=== PATIENT | female | born 1965 | race Caucasian/White ===

== ENCOUNTER 2025-02-11 10:29 | Outpatient (OUT) | payer OTHER, SELFPAY ==
--- OUTSIDE RECORDS SUMMARY | 2024-03-31 09:06 | XMS_ITS ---
Author Organization The [facility] in [place] Address [address] [place] [address] Care Team Providers Care Chief Privacy Officer Name Role Phone Omari Fonseca Primary Care Provider Medications Medication SIG (Take, Route, Frequency, Duration) Notes Start Date End Date Status Coreg 12.5 MG 1 tablet with food O rally Twice a day for 90 days 03/11/2023 Active Encounters Encounter Location Date Provider Diagnosis [address] [place] [address] 03/31/2024 Omari Fonseca Plan Of Treatment Medication Medication Name Sig Start Date Stop Date Notes Coreg 12.5 MG 1 tablet with food O rally Twice a day for 90 days 03/11/2023 Progress Notes * Mary WIGGINS EDOB:[birth year] (58 yo F)Acc No.[id number]:03/31/2024 Patient: Mary AGUILA :1965 A ge:58 Y S ex:Female Address:[place] [address] * Refills Refill Coreg Tablet, 12.5 MG, Orally, 180 Tablet, 1 tablet with food, Twice a day, 90 days, Refills=3 * true * Date: Generated for Printi ng/Faxing/eTransmitting on: 0 02/11/2025 10:34 AM EDT
--- OUTSIDE RECORDS SUMMARY | 2024-04-26 05:55 | XMS_ITS ---
Author Organization The [facility] in [place] Address [address] [place] [address] Care Team Providers Care Sld Teacher Name Role Phone Omari Fonseca Primary Care Provider Medications Medication SIG (Take, Route, Frequency, Duration) Notes Start Date End Date Status Venlafaxine HCl ER 75 MG 1 capsule Orall y Once a day for 90 days 04/11/2023 Active Encounters Encounter Location Date Provider Diagnosis [address] [address] 04/26/2024 Omari Fonseca Plan Of Treatment Medication Medication Name Sig Start Date Stop Date Notes Venlafaxine HCl ER 75 MG 1 capsule Orall y Once a day for 90 days 04/11/2023 Progress Notes * Mary WIGGINS EDOB:[birth year] (58 yo F)Acc No.[id number]:04/26/2024 Patient: Mary AGUILA :1965 A ge:58 Y S ex:Female Address:[place] [address] * Refills Refill Venlafaxine HCl ER Capsule Extended Release 24 Hour, 75 MG, Orally, 90, 1 capsule, Once a day, 90 days, Refills=3 * true * Date: Generated for Kashifi ng/Faxing/eTransmitting on: 0 02/11/2025 10:35 AM EDT
--- OUTSIDE RECORDS SUMMARY | 2025-02-09 05:45 | XMS_ITS ---
Author Organization The [facility] in [place] Address [address] [place] [address] Care Team Providers Care Cogeneration Operator Name Role Phone Omari Fonseca Primary Care Provider Allergies Allergen (clinical drug ingredient) Drug/Non Drug Allergy documented on EMR Reaction Allergy Type Onset Date Status Medicinal quinolone and acting as antibacterial agent (FN) Fluoroquinolones (uncoded) RASH/SOB Allergy Active moxifloxacin Avelox rash/throat Drug Allergy Ac tive Neosporin rash Drug Allergy Active REASON FOR VISIT SELF PAY tenderness of the right breast- more near the nipple area- 5 days ongoing, Patient needs 90 day supply of Irbesartan to DM [facility] Medications Medication SIG (Take, Route, Frequency, Duration) Notes Start Date End Date Status Irbesartan 300 MG 1 tablet Orally Once a day for 30 days 03/11/2023 Active Coreg 12.5 MG 1 tablet with food O rally Twice a day for 90 days 03/11/2023 Active Venlafaxine HCl ER 75 MG 1 capsule Orall y Once a day for 90 days 04/11/2023 Active Social History Tobacco Use: Social History Observation Description Date Details (start date - stop date) Never Smoker NA - NA Tobacco Use/Smoking Question Answer Notes Patient is a nonsmoker Problems Problem Type SNOMED Code ICD Code Onset Dates Problem Status W/U Status Risk Notes Problem Chest wall pain (820356896) Chest wall pain (R07.89) Active confirmed Problem Hypertension (96045188) Hypertension (I10) Active confirmed Problem Depressed (39014543) Depressed (F32.9) Active confirmed Problem Well adult (083494751) Well adult (Z00.00) Active confirmed Vital Signs Blood pressure systolic 152 mm Hg 02/10/20 25 Blood pressure diastolic 82 mm Hg 025 Height 62 in 02/09/2025 Weight 204.6 lbs 02/09/2025 BMI 37.42 kg/m2 02/09/2025 Encounters Encounter Location Date Provider Diagnosis [facility] [address] [place] [address] 02/09/2025 Omari Hoy Chest wall pain R07. 89 ; Hypertension I10 ; Depressed F32.9 and Well adult Z00.00 Assessments Encounter Date Diagnosis (ICD Code) Assessment Notes Treatment Notes Treatment Clinical Notes Section Notes 02/09/2025 Chest wall pain (ICD-10 - R07.89) 02/09/2025 Hypertension (ICD-10 - I10) 02/09/2025 Depressed (ICD-10 - F32.9) 02/09/2025 Well adult (ICD-10 - Z00.00) Plan Of Treatment Pending Test Test Name Order Date HEMOGLOBIN A1C (GLYCO) 02/09/2025 IRON, TOTAL 02/09/2025 LIPID PANEL (CHOL/TRIG/HDL/LDL) 02/10/20 25 VITAMIN D, 25 LEVEL (TOTAL) 02/09/2025 Insulin Level 02/09/2025 STOOL OCCULT BLOOD 02/09/2025 THYROID PANEL (T4/TSH/FREE T3) 5 MM screening mammo BI 02/09/2025 CMP (COMP MET LUIS) w/eGFR CKD-EPI 2024 CBC WITH DIFF 02/09/2025 Progress Notes * Mary WIGGINS EDOB:[birth year] (59 yo F)Acc No.[id number]:02/09/2025 UNLOCKED PROGRESS NOTE Progress Note Patient: Mary AGUILA Provider: Kaz Fonseca ([facility])MD :1965 A ge:59 Y S ex:Female Date:02/09/2025 Address:[address] [place] [address] , [address] [place], [id number] Check In:09:20 AM ESTCheck O ut:10:33 AM EST Subjective: * Chief Complaints: * 1 . SELF PAY tenderness of the right breast- more near the nipple area- 5 days ongoing. 2. Patient needs 90 day supply of Irbesartan to DM [facility]. * HPI: D epression Screening: PHQ-2 (2015 Edition) L ittle interest or pleasure in doing things??Not at all F eeling down, depressed, or hopeless? N ot at all T otal Score 0 Riht breea tenerndss just below the nipple just woke with it - thought slep wrong Not had well ness labs. * ROS: E ENT: hearing changes d enies. v isual changes d enies.?non-healing mouth sores d enies. s wollen glands or neck lumps d enies. h oarseness d enies. s ore throat d enies. d ifficulty swallowing d enies. n ose bleeds d enies. n nelia congestion d enies. e ar ache d enies. e ar discharge?denies. r inging in ears d enies. l ight sensitivity d enies. e ye pain d enies. b lurring d enies. e ye irritation d enies. d ouble vision d enies.?vision loss d enies. G eneral/Constitutional: Sweats: D enies. F atigue d enies. S leep problems d enies. A norexia d enies. M alaise d enies. W eight loss d enies.?Fatigue or Weakness d enies. F ever or Chills d enies. C ardiovascular: Shortness of Breath w/lying flat d enies. L ightheadedness/dizziness d enies. C hest tightness/ heavy pressure d enies. S welling of legs, ankles, or feet d enies. W aking up with shortness of breath d enies. C hest pain denies. P alpitations d enies. W eight gain d enies. R espiratory: Chronic or frequent cough d enies. C oughing up blood?denies. D ifficulty breathing d enies. P roductive cough d enies. S noring?denies. S hortness of breath that awakens from sleep (PND) d enies. C hest pain d enies. S putum production d enies. W heezing d enies. M usculoskeletal: Joint pain d enies. J oint Fluid d enies. B ack pain d enies. K nee pain d enies. N niels pain d enies. J oint Stiffness d enies. M uscle cramps d enies. W eakness of muscles d enies. A rthritis d enies. M uscle aches d enies. P ain in shoulder(s) d enies. S wollen joints d enies. * Medical History: A lcoholic fatty liver, Anemia, COVID-19, Eczema, Essential Hypertension, Gastroesophageal reflux disease, Generalized anxiety disorder, Hyperlipidemia, Hypokalemia. * Surgical History: C HOLECYSTECTOMY . * Hospitalization/Major Diagno stic Procedure: D enies Past Hospitalization. * Family History: F ather: alive, acute myocardial infarction, diagnosed with Diabetes mellitus without mention of complication, type II or unspecified type, not stated as uncontrolled, Unspecified essential hypertension. M other: , acute myocardial infarction, dementia, diagnosed with Diabetes mellitus without mention of complication, type II or unspecified type, not stated as uncontrolled, Unspecified essential hypertension. B rother(s): alive, diagnosed with Diabetes mellitus without mention of complication, type II or unspecified type, not stated as uncontrolled, Unspecified essential hypertension. S on(s): alive. D aughter(s): alive. 2 brother(s) . 2 son(s) , 1 daughter(s) - healthy. . * Social History: T obacco Use: T obacco Use/Smoking P atient is a n onsmoker * Medications: T aking Coreg(Carvedilol) 12.5 MG Tablet 1 tablet with food Orally Twice a day , Taking Irbesartan 300 MG Tablet 1 tablet Orally Once a day , Taking Venlafaxine HCl ER 75 MG Capsule Extended Release 24 Hour 1 capsule Orally Once a day , Discontinued Cefdinir 300 MG Capsule 2 tabs Orally once a day , Discontinued predniSONE 20 MG Tablet 3 tablets Orally Once a day , Medication List reviewed and reconciled with the patient * Allergies: F luoroquinolones: RASH/SOB - Allergy, Neosporin: rash - Allergy, Avelox: rash/throat - Allergy. Objective: * Vitals: W t:204.6lbs, Ht: 62 in, BP:152/82mm Hg, BMI:37.42Index, Ht-cm: 157.48 cm, Wt-k.81 kg. * Examination: P hysical Exam: GENERAL: w ell developed, well nourished, in no acute distress. HEAD: n ormocephalic/atraumatic. EYES: p upils equal, round and reactive to light, conjunctivae and sclerae normal. EARS: n o deformity or lesion of external ear, canals and TM appear normal bilaterally, TM's intact, not inflamed with normal light reflex, hearing grossly normal to conversational speech. NOSE: n o deformity, discharge, inflammation, or lesions.? MOUTH: m ucous membranes moist, normal oropharynx and posterior pharynx without lesions or exudates, tongue normal, dentition normal. NECK: n niels supple, no masses or palpable cervical nodes, trachea midline, thyroid without nodules, masses, tenderness, or enlargement. CHEST: n o chest wall deformity, no chest wall tenderness.? LUNGS: n ormal respiratory effort and clear to auscultation, no wheezes, rales, or rhonchi, good air exchange. CARDIO: r egular rate and rhythm, normal S1 and S2, nor murmur, rub, or gallop. PULSES: n ormal capillary refill. ABDOMEN: s oft, non-distended, non-tender, no masses. MUSCULOSKELETAL: n o deformity or scoliosis noted, normal range of motion, joints normal, no erythema, edema, effusion, or ecchymosis. EXTREMITY: n o clubbing, cyanosis, edema, or deformity with normal ROM in both upper and lower bilateral extremities. NEUROLOGIC: g rossly normal. SKIN: n o rashes, ulcerations, or suspicious lesions. LYMPH NODES: n o cervical adenopathy, nodes normal. MENTAL STATUS: a lert and oriented x3, normal mood and affect. Assessment: * Assessment: 1. C hest wall pain - R07.89 (Primary) 2 . H ypertension - I10 ?3. D epressed - F32.9 4 . W ell adult - Z00.00 Plan: * Treatment: * * Electronic signature of Omari Fonseca MD, [id number] on 02/11/2025 at 10:35 AM EDT Sign off status: Pending Visit Status: C HK (Check Out) * Provider: Kaz Fonseca ([facility])MD Date: 0 02/09/2025 Generated for Kashifi mary ellen/Luisag/eTransmitting on: 0 02/11/2025 10:35 AM EDT History and Physical Notes * HPI (History of Present Illness) Category Sub-Category Detail Notes Category Not es Depression Screening PHQ-2 (2015 Edition) Little interest or pleasure in doing things?: Not at all Riht breea tenerndss just below the nipple just woke with it - thought slep wrong Not had well ness labs Feeling down, depressed, or hopeless?: N ot at all Total Score: 0 Examination Category Sub-Category Detail Notes Category Not es Physical Exam GENERAL: well developed, well nourished, in no acute distress HEAD: normocephalic/atraum atic EYES: pupils equal, round and reactive to light, conjunctivae and sclerae normal EARS: no deformity or lesi on of external ear, canals and TM appear normal bilaterally, TM's intact, not inflamed with normal light reflex, hearing grossly normal to conversational speech NOSE: no deformity, discha rge, inflammation, or lesions MOUTH: mucous membranes eric st, normal oropharynx and posterior pharynx without lesions or exudates, tongue normal, dentition normal NECK: neck supple, no mass es or palpable cervical nodes, trachea midline, thyroid without nodules, masses, tenderness, or enlargement CHEST: no chest wall deform ity, no chest wall tenderness LUNGS: normal respiratory e ffort and clear to auscultation, no wheezes, rales, or rhonchi, good air exchange CARDIO: regular rate and rhy thm, normal S1 and S2, nor murmur, rub, or gallop PULSES: normal capillary ref ill ABDOMEN: soft, non-distended, non-tender, no masses RECTAL: MUSCULOSKELETAL: no deformity or scol iosis noted, normal range of motion, joints normal, no erythema, edema, effusion, or ecchymosis EXTREMITY: no clubbing, cyanosi s, edema, or deformity with normal ROM in both upper and lower bilateral extremities NEUROLOGIC: grossly normal SKIN: no rashes, ulceratio ns, or suspicious lesions LYMPH NODES: no cervical adenopat hy, nodes normal MENTAL STATUS: alert and oriented x 3, normal mood and affect
--- OUTSIDE RECORDS SUMMARY | 2025-02-11 10:35 | XMS_ITS | Patient Health Record ---
Author Organization The [facility] in [place] Address [address] [place] [address] Care Team Providers Care Marble Setter Name Role Phone Marian Omari Primary Care Provider Allergies Allergen (clinical drug ingredient) Drug/Non Drug Allergy documented on EMR Reaction Allergy Type Onset Date Status Medicinal quinolone and acting as antibacterial agent (FN) Fluoroquinolones (uncoded) RASH/SOB Allergy Active moxifloxacin Avelox rash/throat Drug Allergy Ac tive Neosporin rash Drug Allergy Active Reason For Referral No Information Medications Medication SIG (Take, Route, Frequency, Duration) [...] Question Answer Notes Patient is a nonsmoker Alcohol Screen (Audit-C) Question Answer Notes Did you have a drink contain ing alcohol in the past year? Yes How often did you have 6 or more drinks on one occasion in the past year? Never (0 point) How many drinks did you have on a typical day when you were drinking in the past year? 3 or 4 drinks (1 point) How often did you have a dri nk containing alcohol in the past year? Daily or almost daily (4 points) Points 5 Interpretation Positive Problems Problem Type SNOMED Code ICD Code Onset Dates Problem Status W/U Status Risk Notes Problem Hypertension (66651778) Hypertension (I10) Active confirmed Problem Depressed (F32.9) Active confirmed Problem Well adult (183387634) Well adult (Z00.00) Active confirmed Problem Chest wall pain (856169010) Chest wall pain (R07.89) Active confirmed Problem Asthmatic bronchitis (142570222) Asthmatic bronchitis (J45.909) Active confirmed Vital Signs Blood pressure diastolic 82 mm Hg 02/09/2025 Height 62 in 02/09/2025 Blood pressure systolic 152 mm Hg 02/09/2025 Weight 204.6 lbs 02/09/2025 BMI 37.42 kg/m2 02/09/2025 Encounters Encounter Location Date Provider Diagnosis [facility] [address] [facility] [place] [address] 03/10/2024 [facility] [address] [facility] [place] [address] 03/15/2024 [facility] [address] [facility] [place] [address] 03/31/2024 [facility] [address] [facility] [place] [address] 04/26/2024 [facility] [address] [facility] [place] [address] 02/09/2025 Omari [facility] Chest wall pain R07. 89 ; Hypertension [...] w/eGFR CKD-EPI 2024 CBC WITH DIFF 02/09/2025 Medical (General) History Medical History History ICD Code Alcoholic fatty liver K70.0 Anemia D64.9 COVID-19 U07.1 Eczema L30.9 Essential Hypertension I10 Gastroesophageal reflux disease K21.9 Generalized anxiety disorder F41.1 Hyperlipidemia E78.5 Hypokalemia E87.6 Surgical History Surgery Date(Month/Year) CHOLECYSTECTOMY
[2025-02-11 11:20] LABS: Basophils Absolute Auto 0.1 10^3/uL (0.0-0.1); Basophils Percent Auto 0.9 % (0.2-2.0); Eosinophils Absolute Auto 0.5 10^3/uL (0.0-0.7); Eosinophils Percent Auto 5.1 % (0.9-7.0); Hematocrit 41.7 % (36.0-48.0); Hemoglobin 14.4 g/dL (12.0-16.0); Immature Granulocytes Abs Auto 0.03 10^3/uL (0.00-0.03); Immature Granulocytes Pct Auto 0.3 % (0.0-0.5); Lymphocytes Absolute Auto 2.7 10^3/uL (1.2-3.8); Lymphocytes Percent Auto 25.7 % (20.5-60.0); Mean Corpuscular HGB Conc 34.5 g/dL (29.9-35.2); Mean Corpuscular Volume 98.3 fL (81.0-99.0); Mean Platelet Volume 9.9 fL (9.5-13.5); Monocytes Absolute Auto 0.6 10^3/uL (0.3-0.8); Monocytes Percent Auto 6.1 % (1.7-12.0); Neutrophils Absolute Auto 6.4 10^3/uL (1.4-6.5); Neutrophils Percent Auto 61.9 % (43.0-75.0); Platelet Count 215 10^3/uL (150-450); Red Blood Count 4.24 10^6/uL (4.20-5.40); Red Cell Distribution Width 12.2 % (11.0-15.0); White Blood Count 10.3 10^3/uL (4.0-11.0)
--- NOTE | 2025-02-11 11:50 | MM_ITS ---
Patient Name: HILDA MCKINNEY MR#: [id number] : 1965 Exam Date: 02/11/2025 Ordering Doctor: DR SHARON ARRIETA . RADIOLOGY REPORT PROCEDURE: MM TOMOSYNTHESIS SCREENING BI COMPARISON: MG MAMM SCREEN 3D [place] CAD, 03/20/2021. MG MAMM SCREEN [place] W CAD, 09/30/2019. MG MAMM SCREEN [place] W CAD, 09/29/2018. MG MAMM [place] SCRN W CAD DIG, 06/24/2013. INDICATIONS: Screening Calculator Name NCI Breast Cancer Risk Assessment Tool 5 Year Breast Cancer Risk 0.80% Lifetime Breast Cancer Risk 4.00% Personal Breast Cancer No Personal Ovarian Cancer No Treatments None Family Cancers None LOCATION: [facility] BREAST COMPOSITION: There are scattered areas of fibroglandular density. FINDINGS: RIGHT BREAST: No significant suspicious finding. LEFT BREAST: No significant suspicious finding. DIAGNOSTIC CATEGORY 1--NEGATIVE. RECOMMENDATIONS: ROUTINE MAMMOGRAM AND CLINICAL EVALUATION IN 12 MONTHS. PLEASE NOTE: A NORMAL MAMMOGRAM DOES NOT EXCLUDE THE POSSIBILITY OF BREAST CANCER. A CLINICALLY SUSPICIOUS PALPABLE LUMP SHOULD BE BIOPSIED. Dictated by: Slade Randall DO on 02/11/2025 at 14:19 Approved by: Slade Randall DO on 02/11/2025 at 14:20
[2025-02-11 11:57] LABS: Alanine Aminotransferase 42 U/L (14-59); Albumin Globulin Ratio 0.5; Albumin Level 2.7 g/dL (3.4-5.0); Alkaline Phosphatase 101 U/L (46-116); Anion Gap 14.8; Aspartate Amino Transferase 46 U/L (15-37); BUN Creatinine Ratio 15.5; Bilirubin Total 0.9 mg/dL (0.2-1.0); Calcium 9.5 mg/dL (8.5-10.1); Carbon Dioxide 26.3 mmol/L (21.0-32.0); Chloride 102 mmol/L (98-107); Chol HDL Ratio 2.4; Cholesterol 192 mg/dL (<=200); Estimated GFR (African America >60 (>=60 mL/min/1.73m^2); Estimated GFR (Non-African Ame >60 (>=60 mL/min/1.73m^2); Free T3 2.29 pg/mL (2.18-3.98); Globulin 5.5 g/dL; Glucose 167 mg/dL (74-106); HDL Cholesterol 81 mg/dL (40-60); Potassium 4.1 mmol/L (3.5-5.1); Sodium 139 mmol/L (136-145); Thyroid Stimulating Hormone 2.963 uIU/mL (0.358-3.740); Total Protein 8.2 g/dL (6.4-8.2); Triglycerides 140 mg/dL (<=150)
[2025-02-11 14:29] LABS: Estimated Average Glucose 114 mg/dL; Glycohemoglobin A1C 5.6 % (4.5-6.2)
[2025-02-12 04:50] LABS: Insulin 97.9 uIU/mL (2.6-24.9)
== END 2025-02-11 10:30 | disposition home or self-care (01) ==
LOC: LAB 10:33
PROVIDERS: PCP Family Medicine; Visit Provider Family Medicine
DX: Z00.00 Encounter for general adult medical examination without abnormal findings (principal); E78.5 Hyperlipidemia, unspecified; R73.09 Other abnormal glucose; D64.9 Anemia, unspecified; R53.83 Other fatigue; E55.9 Vitamin D deficiency, unspecified; Z12.31 Encounter for screening mammogram for malignant neoplasm of breast
CPT/HCPCS: 36415; 77063; 77067; 80053; 80061; 82306; 83036; 83525; 83540; 84436; 84443; 84481; 85025